=== PATIENT | female | born 1980 | race Caucasian/White ===

== ENCOUNTER 2021-06-02 10:57 | Inpatient (IN) ==
[2021-06-02] MEDS ORDERED: ALBUTEROL SULFATE 200 PUFF INHALER INH PRN ×2 (12:36→17:12)
--- NOTE | 2021-06-02 12:54 | XRay Report ---
HISTORY: Covid symptoms with hypoxia FINDINGS: Severe diffuse groundglass alveolar infiltrates are present throughout both lungs. There is greater involvement in the left side than right. Lung volumes are normal. No pneumothorax or pleural effusion are present. The heart size is within upper limits of normal. No prior study is available for comparison. IMPRESSION: Severe bilateral pneumonia Interpreted and Authenticated by: Omer Al 06/02/21
--- NOTE | 2021-06-02 12:56 | Emergency Department Note ---
HPI General Chief complaint: Shortness of Breath/Dyspnea Stated complaint: SOB Time Seen by Provider: 06/02/21 12:06 Source: patient Limitations: no limitations History of Present Illness HPI Narrative: Bernadette is a 41-year-old female who comes to the emergency department today with worsening shortness of breath. She was seen by Dr. Bertrand odom 4 days ago and was placed on prednisone, clopidogrel, and Nasacort due to a presumed diagnosis of COVID-19 as her was recently diagnosed with this illness and she began to have symptoms shortly after he recovered. Her did require oxygen at home but did not face any other complications. When Bernadette noticed that her oxygen saturations and and was able to maintain into the high 90s at 2 L but over the past 3 days has had to crank this up to 5 L. She complains of a persistent dry cough as well as generalized weakness and myalgia. No reports of any nausea or vomiting. No reports of any urinary or bowel issues. Bernadette does not have any history of asthma, COPD, cigarette use. She is not a diabetic. She is morbidly obese. She has no history of PE, ACS, or aortic injury. She is quite anxious today as she has never experienced symptoms of COVID-19 before. She is unvaccinated. She has no other complaints today in the ER. No other modifying factors. Related Data Home Medications Medication Instructions Recorded Confirmed lorazepam 1 mg tablet 1 mg PO QDAY PRN 03/12/21 03/12/21 Previous Rx's Medication Instructions Recorded lidocaine 5 % topical patch 1 patch TOPICAL QDAY #15 ea 03/12/21 fluoxetine 10 mg tablet 10 mg PO QDAY #30 tab 05/09/21 lorazepam 1 mg tablet 1 mg PO BID PRN #60 tab 05/09/21 phentermine 37.5 mg tablet 18.75 mg PO BID #30 tab 05/09/21 Allergies Allergy/AdvReac Type Severity Reaction Status Date / Time ketamine AdvReac Intermediate Agitated Unverified 06/02/21 11:12 [From MKO (Hxfptdatb-Lhkphvqf-Jkcxj)] midazolam AdvReac Intermediate Agitated Unverified 06/02/21 11:12 [From MKO (Eqlvfrste-Hrqjhiic-Ulvde)] ondansetron AdvReac Intermediate Agitated Unverified 06/02/21 11:12 [From MKO (Oqbcliebo-Trsybzwq-Ylokr)] Review of Systems ROS ROS Narrative: Narrative: All systems ED: reviewed and negative except as stated. [facility] Narrative Patient History Narrative: Narrative: Medical/Surgical/Family History All Active Problems (Updated 06/02/21 @ 14:23 by Misael Delong PA-C) COVID-19 (Acute) Anxiety (Acute) Morbid obesity with BMI of 45.0-49.9, adult (Acute) Hyperlipidemia (Acute) Prediabetes (Acute) Insomnia (Acute) Abscess of groin, right (Acute) Medical History (Updated 06/02/21 @ 14:23 by Misael Delong PA-C) Anxiety Bulimia History of PCOS Was on Metformin Hyperlipidemia Insomnia Morbid obesity with BMI of 45.0-49.9, adult Prediabetes Surgical History (Updated 06/02/21 @ 11:12 by Brent Feldman) History of endometrial biopsy (~08/22/19) PORTIONS OF ENDOMETRIAL POLYP WITH FOCAL BENIGN (SIMPLE) HYPERPLASIA. = Dr Fuentes History of tonsillectomy Hx of laparoscopic gastric banding Previous section (~02/10/04) Family History (System 06/02/21 @ 11:12 by Brent Feldman) Grandmother Diabetes Hypertension Mother No problems noted. Father No problems noted. Other No pertinent family history Social History Smoking Status: Former smoker Alcohol Intake Frequency: holiday/special occasion only Substance Use: does not use Exam Narrative Narrative: Narrative: General Limitations: no limitations Head Head: Present atraumatic, normocephalic and normal inspection Eye Eye: Present normal appearance, PERRL and EOMI ENT ENT: Present normal exam, normal oropharynx and mucous membranes moist Neck Neck: Present normal inspection, full ROM and trachea midline Chest Chest: Present normal inspection and symmetric chest wall rise Respiratory Respiratory: Present decreased breath sounds Cardiovascular Cardiovascular: Present regular rate and normal rhythm Adbominal Abdominal: Present soft Extremities Extremities: Present normal inspection, full ROM and normal capillary refill Back Back: Present normal inspection and full ROM Neurological Neurological: Present alert and oriented X3 Psychiatric Psychiatric: Present normal affect and normal mood Skin Skin: Present warm (WNL), dry and normal color Course Course Course Narrative: 1258: Patient is not tachycardic and does not have any history of PE. EKG on my read shows sinus rhythm with a rate of no ST changes, no hyperacute T waves. No evidence of any S wave or Q waves. At this point time patient does have some risk of pulmonary embolism based on age and complaint of shortness of breath because she is not tachycardic or reporting hemoptysis and had recent exposure to her who was diagnosed with COVID-19 this certainly makes sense for a clinical diagnosis of COVID-19 despite her rapid test being negative. Chest x-ray has been ordered for further evaluation of possible pneumonia. Patient continues to saturate well in the 90s but is at 5 L by nonrebreather mask. If the patient cannot maintain high oxygen saturation on the then we should consider hospitalization due to Covid 19 with hypoxia. Patient to get a metered dose inhaler of albuterol every 4 hours in the ER. Labs and chest x-ray have been ordered for further evaluation. 1415: X-ray confirms diagnosis of COVID-19 based on evidence of bilateral groundglass infiltrates. Patient continues to require 5 L by oxygen mask to stay above 90% oxygen saturation. I did speak with the hospitalist regarding inpatient stay and he has accepted the patient to PCU. Patient will have an ABG drawn as well as a Cepheid PCR test. IV dose of dexamethasone was given for inflammation. Vital Signs Vital signs: Vital Signs Temperature 97.5 F 06/02/21 10:58 Pulse Rate 65 06/02/21 10:58 Respiratory Rate 22 06/02/21 10:58 Blood Pressure 131/62 06/02/21 10:58 Pulse Oximetry (%) 92 06/02/21 10:58 Temperature 97.5 F 06/02/21 10:58 Pulse Rate 72 06/02/21 14:17 Respiratory Rate 22 06/02/21 14:17 Blood Pressure 122/55 06/02/21 14:17 Pulse Oximetry (%) 97 06/02/21 14:17 [facility] MDM Narrative Medical decision making narrative: 41 year old female with history of COVID exposure and symptoms of COVID 19 presents to the ER today with worsening shortness of breath and hypoxia. Patient struggles to maintain O2 stats over 90 without 5L by oxy-mask. She was using at home O2 and reports a requirement of 2 to 5 L to breath comfortably. Patients x-ray shows evidence of worsening pneumonia and based on her hypoxia will be admitted to the hospital for care. Patient discussed with Dr. Miguel prior to admission. She was given a metered dose inhaler for shortness of breath and dexamethasone for inflammation. Assessment: COVID Pneumonia. Treatment: Hospital admission. Dexamethasone for inflammation. Albuterol for shortness of breath. Lab Data Result diagrams: 06/02/21 12:55 06/02/21 12:55 Labs: Lab Results 06/02/21 06/02/21 Range/Units 12:55 12:55 WBC 7.4 (4.5-11.0) K/mcL RBC 4.85 (3.59-5.38) M/mcL Hgb 13.0 (11.2-15.7) g/dL Hct 39.9 (34.1-44.9) % MCV 82.3 (80.0-100.0) fL MCH 26.8 (26.0-34.0) pg MCHC 32.6 (31.0-36.0) g/dL RDW 15.1 H (11.5-14.5) % Plt Count 296 (140-440) K/mcL MPV 9.9 (7.4-10.4) fL Neut % (Auto) 82.3 H (38.0-78.0) % Lymph % (Auto) 11.9 L (15.5-49.0) % Mcculloch % (Auto) 5.4 (1.0-12.0) % Eos % (Auto) 0.1 (0.0-7.0) % Baso % (Auto) 0.3 (0.0-2.0) % Lymph # (Auto) 0.88 L (1.50-4.80) K/mcL M[place]ulloch # (Auto) 0.40 (0.10-0.90) K/mcL Eos # (Auto) 0.01 (0.00-0.70) K/mcL Baso # (Auto) 0.02 (0.00-0.30) K/mcL Absolute Neutrophils 6.08 (1.80-8.00) K/mcL Sodium 138 (133-145) mmol/L Potassium 3.5 (3.3-5.1) mmol/L Chloride 98 (96-108) mmol/L Carbon Dioxide 24 (22-30) mmol/L Anion Gap 16.0 (8.0-16.0) BUN 14 (6-20) mg/dL Creatinine 0.7 (0.6-1.1) mg/dL GFR Calculation 108 Glucose 118 H (70-105) mg/dL Calcium 8.8 (8.6-10.4) mg/dL Total Bilirubin 0.4 (0.1-1.0) mg/dL AST 33 H (<32) U/L ALT 24 (<40) U/L Alkaline Phosphatase 101 (39-117) U/L Total Protein 6.9 (5.9-8.4) gm/dL Albumin 3.4 (3.2-5.2) gm/dL Globulin 3.5 (2.2-3.7) gm/dL Albumin/Globulin Ratio 1.0 (1.0-2.3) ED POC Tests ED POC Tests: JOSE JUAN - SARS Antigen Negative Discharge Plan Patient/Caregiver Discharge Instructions Pt seen by EMPLOYMENT LAW SPECIALIST/PA only: Yes Clinical Impression: COVID-19 Instructions: COVID-19 Patient Disposition: Xfer As Inpt ([facility]) Condition: Fair Follow up with: Delia Salcedo ARNP [Primary Care Provider] - Prescriptions: No Action fluoxetine 10 mg tablet 10 mg PO QDAY Qty: 30 RF: 12 lorazepam 1 mg tablet 1 mg PO BID PRN (Reason: anxiety) Qty: 60 RF: 0 phentermine 37.5 mg tablet 18.75 mg PO BID Qty: 30 RF: 3 lorazepam 1 mg tablet 1 mg PO QDAY PRNRF: 0 lidocaine [Lidoderm] 5 % adhesive patch,medicated 1 patch topical QDAY Qty: 15 RF: 0
[2021-06-02] MEDS ORDERED: DEXAMETHASONE 10 MG/ML VIAL IV ONE (13:12)
[2021-06-02 13:40] LABS: Basophils # (Auto) 0.02 K/mcL (0.00-0.30); Basophils % (Auto) 0.3 % (0.0-2.0); Eosinophils # (Auto) 0.01 K/mcL (0.00-0.70); Eosinophils % (Auto) 0.1 % (0.0-7.0); Hematocrit 39.9 % (34.1-44.9); Lymphocytes # (Auto) 0.88 K/mcL (1.50-4.80); Lymphocytes % (Auto) 11.9 % (15.5-49.0); Mean Cell Volume 82.3 fL (80.0-100.0); Mean Corpuscular HGB Conc 32.6 g/dL (31.0-36.0); Mean Platelet Volume 9.9 fL (7.4-10.4); Monocytes % (Auto) 5.4 % (1.0-12.0); Neutrophils % (Auto) 82.3 % (38.0-78.0); Platelet Count 296 K/mcL (140-440); RBC 4.85 M/mcL (3.59-5.38); Red Cell Distribution Width 15.1 % (11.5-14.5); WBC 7.4 K/mcL (4.5-11.0)
[2021-06-02 13:47] LABS: ALT/SGPT 24 U/L (<40); AST/SGOT 33 U/L (<32); Albumin 3.4 gm/dL (3.2-5.2); Alkaline Phosphatase 101 U/L (39-117); Bilirubin,Total 0.4 mg/dL (0.1-1.0); Blood Urea Nitrogen 14 mg/dL (6-20); Calcium 8.8 mg/dL (8.6-10.4); Carbon Dioxide 24 mmol/L (22-30); Chloride 98 mmol/L (96-108); Globulin 3.5 gm/dL (2.2-3.7); Glomerular Filtration Rate 108; Glucose 118 mg/dL (70-105)
--- NOTE | 2021-06-02 16:44 | Internal Med History&Physical ---
HPI History of Present Illness Patient information: Note initiated : 06/02/21 at 4:31 pm Service Date, if different from initiated Date: [] Patient: Bernadette Brooks 41 y/o F admitted on for Shortness of breath. Chief Complaint: [] History of present illness: Ms. Jassi Resendez is a 41 year old female with a history of anxiety, prediabetes, obesity-BMI 42 who presented to the [facility] for hypoxia that began about three days ago. Her was diagnosed with COVID-19 and was is recovering at home however apparently required oxygen during part of his recovery. The patient says that she began to feel ill about 10 days ago and began to use her husbands oxygen 3 days ago when she saw she was hypoxic on a home pulse oximeter. The patient was started on Prednisone 60 mg daily by her primary care provider but continued to get more short of breath. She also has a nonproductive cough and pleuritic chest pain. In the ED the patient required nasal canula oxygen 5 L/min, her respiratory rate 20-30. CBC was fairly unremarkable, mildly increased neutrophils and lymphopenia but WBC count was normal. Chemistry panel only showed mild hyperglycemia and mildly elevated AST. Chest xray showed severe diffuse ground glass alveolar infiltrates bilaterally, left>right. CEPHEID PCR was positive for SARS-CoV-2. Hospital medicine was consulted for admission. Review of systems Constitutional: positive for fatigue Eyes: no vision changes or pain Cardiovascular: positive for pleuritic chest pain Respiratory: positive for cough and dyspnea Gastrointestinal: no abdominal pain, no nausea, vomiting, or diarrhea Genitourinary: no dysuria or difficulty voiding Musculoskeletal: positive for myalgia Integumentary: no skin lesion or wound Neurological: no focal weakness or numbness Psychiatric: no anxiety or depression Physical exam Head: Atraumatic, normal inspection. Eyes: normal appearance, no scleral icterus. Neck: full ROM Respiratory: nasal canula oxygen, tachypnea, accessory muscle use but able to speak in full sentences Cardiovascular: normal rate and rhythm, S1, S2. GI/Abdominal: soft, nontender, no guarding. Extremities: full range of motion, nontender. Neurological: CN II-XII intact, intact motor, intact sensation. Psychiatric: normal mood. Skin: warm, normal color PFSH PFSH All Active Problems (Updated 06/02/21 @ 14:23 by Misael Delong PA-C) COVID-19 (Acute) Anxiety (Acute) Morbid obesity with BMI of 45.0-49.9, adult (Acute) Hyperlipidemia (Acute) Prediabetes (Acute) Insomnia (Acute) Abscess of groin, right (Acute) Medical History (Updated 06/02/21 @ 14:23 by Misael Delong PA-C) Anxiety Bulimia History of PCOS Was on Metformin Hyperlipidemia Insomnia Morbid obesity with BMI of 45.0-49.9, adult Prediabetes Surgical History (Updated 06/02/21 @ 11:12 by Brent Feldman) History of endometrial biopsy (~08/22/19) PORTIONS OF ENDOMETRIAL POLYP WITH FOCAL BENIGN (SIMPLE) HYPERPLASIA. = Dr Fuentes History of tonsillectomy Hx of laparoscopic gastric banding Previous section (~02/10/04) Family History (System 06/02/21 @ 11:12 by Brent Feldman) Grandmother Diabetes Hypertension Mother No problems noted. Father No problems noted. Other No pertinent family history Social History (System 06/02/21 @ 11:12 by Brent Feldman) household members: spouse housing: house marital status: occupational status: employed occupation: [employer] well-balanced diet: other details: Keto, no sugar during the past year weight has: increased > 10 lbs alcohol intake frequency: holiday/special occasion only substance use type: does not use carson/rastafari: [employer]/ALLERGIES Home Medications and Allergies Home Medications Medication Instructions Recorded Confirmed Type lorazepam 1 mg tablet 1 mg PO BID PRN #60 tab 05/09/21 06/02/21 Rx clopidogrel 75 mg PO DAILY 06/02/21 06/02/21 History famotidine 20 mg PO DAILY 06/02/21 06/02/21 History fluticasone propionate 2 spray INTRANASAL DAILY 06/02/21 06/02/21 History prednisone 40 mg PO DAILY 06/02/21 06/02/21 History Allergies Allergy/AdvReac Type Severity Reaction Status Date / Time ketamine AdvReac Intermediate Agitated Verified 06/02/21 17:24 [From MKO (Jjezuagdc-Savbygpu-Icakc)] midazolam AdvReac Intermediate Agitated Verified 06/02/21 17:24 [From MKO (Bcigsonde-Ndicbvzs-Tyznf)] ondansetron AdvReac Intermediate Agitated Verified 06/02/21 17:24 [From MKO (Ehuptylpz-Xtzfolmu-Xgggf)] EXAM Constitutional Vitals: Temp Pulse Resp BP Pulse Ox 97.5 F 63 26 H 124/62 91 06/02/21 10:58 06/02/21 16:02 06/02/21 16:02 06/02/21 16:02 06/02/21 16:02 DATA Data Completed and Pending Labs: Labs from last 24 hours 06/02/21 06/02/21 12:55 12:55 WBC 7.4 RBC 4.85 Hgb 13.0 Hct 39.9 MCV 82.3 MCH 26.8 MCHC 32.6 RDW 15.1 H Plt Count 296 MPV 9.9 Neut % (Auto) 82.3 H Lymph % (Auto) 11.9 L Montgomery % (Auto) 5.4 Eos % (Auto) 0.1 Baso % (Auto) 0.3 Lymph # (Auto) 0.88 L Montgomery # (Auto) 0.40 Eos # (Auto) 0.01 Baso # (Auto) 0.02 Absolute Neutrophils 6.08 Sodium 138 Potassium 3.5 Chloride 98 Carbon Dioxide 24 Anion Gap 16.0 BUN 14 Creatinine 0.7 GFR Calculation 108 Glucose 118 H Calcium 8.8 Total Bilirubin 0.4 AST 33 H ALT 24 Alkaline Phosphatase 101 Total Protein 6.9 Albumin 3.4 Globulin 3.5 Albumin/Globulin Ratio 1.0 A/P Narrative A/P Narrative: Assessment: 41 year old female with anxiety, prediabetes, obesity admitted for acute hypoxic respiratory failure secondary to severe COVID-19 pneumonia. #Acute hypoxic respiratory failure #Severe COVID-19 pneumonia #Anxiety #BMI 42 Plan -Dexamethasone IV and Remdesivir IV for severe COVID-19 pneumonia. -Oxygen supplementation as needed. -Albuterol inhaler prn. -Ativan IV prn. -Check CRP and follow. -Daily labs while in PCU. -Consider Tocilizumab if treatment available. -Encourage self proning. -Regular diet. -DVT ppx: Lovenox SQ -Code status: Wheel Tuner Spent With Patient Time: Total time spent is greater than 50% in coordination of care (as documented) at patient's floor/unit and/or counseling patient:
[2021-06-02] MEDS ORDERED: ACETAMINOPHEN 325 MG TABLET PO PRN (17:12)
[2021-06-02] MEDS ORDERED: ONDANSETRON 4 MG/2 ML VIAL IV PRN (17:12)
[2021-06-02] MEDS ORDERED: oxyCODONE/APAP 5/325MG TABLET PO PRN (17:12)
[2021-06-02] MEDS ORDERED: KETOROLAC 30 MG/ML VIAL IV PRN (17:12)
[2021-06-02] MEDS ORDERED: LORazepam 1 MG TABLET PO PRN (17:20)
[2021-06-02] MEDS ORDERED: REMDESIVIR 200 MG in 0.9 % SODIUM CHLORIDE 250 ML IV ONE (18:00)
[2021-06-02 18:05] LABS: ALT/SGPT 24 U/L (<40); AST/SGOT 34 U/L (<32); Albumin 3.5 gm/dL (3.2-5.2); Alkaline Phosphatase 100 U/L (39-117); Bilirubin,Direct < 0.2 mg/dL (0-0.3); Bilirubin,Total 0.4 mg/dL (0.1-1.0); Blood Urea Nitrogen 14 mg/dL (6-20); Calcium 8.9 mg/dL (8.6-10.4); Carbon Dioxide 24 mmol/L (22-30); Chloride 98 mmol/L (96-108); Globulin 3.6 gm/dL (2.2-3.7); Glomerular Filtration Rate 108; Glucose 116 mg/dL (70-105); Lactate Dehydrogenase 413 U/L (135-225); Phosphorous 2.7 mg/dL (2.5-4.5); Triglycerides 185 mg/dL (<150); Uric Acid 6.3 mg/dL (2.5-8.0)
[2021-06-02] MEDS: LORazepam 2 MG/ML VIAL IV PRN (19:00)
--- NOTE | 2021-06-02 20:50 | EKG ---
[facility] Test Date: 2021-06-02 Pat Name: Bernadette ResendezDepartment: ED Room: Gender: Female Soil Fertility Specialist: NGHIA : 1980 Requested By: Anibal Rivera Order Number: [id number] Reading MD: Brendan Kohli M.D. Measurements Intervals [place] Rate: 66 P: 2 ME: 172 QRS: 4 QRSD: 82 T: 46 QT: 420 QTc: 441 Interpretive Statements AGE IS NOT ENTERED, ASSUMED TO BE 51 YEARS OLD FOR PURPOSE OF ECG INTERPRETATION SINUS RHYTHM NO TRACING FOUND IN [employer] NORMAL TRACING Electronically Signed On 06-02-2021 20:49:57 PDT by Brendan Kohli M.D. /store/E2/[email or web address]/ecg/[id number].pdf
[2021-06-02] MEDS: SENNOSIDES 1 TABLET PO SCH (22:04)
[2021-06-02] MEDS: 0.9 % SODIUM CHLORIDE 10 ML SYRINGE IV SCH (22:04)
[2021-06-02] MEDS ORDERED: guaiFENesin/DEXTROMETHORPHAN ORAL SOL ONE (23:14)
[2021-06-03] MEDS: LORazepam 2 MG/ML VIAL IV PRN ×2 (03:28→09:35)
[2021-06-03] MEDS: 0.9 % SODIUM CHLORIDE 10 ML SYRINGE IV SCH ×3 (06:29→21:30)
[2021-06-03 07:19] LABS: Basophils # (Auto) 0.02 K/mcL (0.00-0.30); Basophils % (Auto) 0.4 % (0.0-2.0); Eosinophils # (Auto) 0 K/mcL (0.00-0.70); Eosinophils % (Auto) 0 % (0.0-7.0); Hematocrit 37.1 % (34.1-44.9); Hemoglobin 12.2 g/dL (11.2-15.7); Lymphocytes # (Auto) 0.84 K/mcL (1.50-4.80); Mean Cell Volume 83.2 fL (80.0-100.0); Mean Corpuscular HGB Conc 32.9 g/dL (31.0-36.0); Mean Platelet Volume 9.7 fL (7.4-10.4); Monocytes # (Auto) 0.42 K/mcL (0.10-0.90); Monocytes % (Auto) 8.8 % (1.0-12.0); Neutrophils % (Auto) 73.2 % (38.0-78.0); Platelet Count 287 K/mcL (140-440); RBC 4.46 M/mcL (3.59-5.38); Red Cell Distribution Width 15.1 % (11.5-14.5); WBC 4.8 K/mcL (4.5-11.0)
[2021-06-03 07:22] LABS: ALT/SGPT 23 U/L (<40); AST/SGOT 28 U/L (<32); Albumin 3.4 gm/dL (3.2-5.2); Albumin/Globulin Ratio 1.1 (1.0-2.3); Alkaline Phosphatase 97 U/L (39-117); Bilirubin,Direct < 0.2 mg/dL (0-0.3); Bilirubin,Total 0.5 mg/dL (0.1-1.0); Blood Urea Nitrogen 13 mg/dL (6-20); Calcium 8.8 mg/dL (8.6-10.4); Carbon Dioxide 22 mmol/L (22-30); Chloride 102 mmol/L (96-108); Globulin 3.2 gm/dL (2.2-3.7); Glomerular Filtration Rate 114; Glucose 112 mg/dL (70-105); Lactate Dehydrogenase 380 U/L (135-225); Triglycerides 126 mg/dL (<150); Uric Acid 6.2 mg/dL (2.5-8.0)
[2021-06-03] MEDS: DEXAMETHASONE 10 MG/ML VIAL IV SCH (08:25)
[2021-06-03] MEDS: ENOXAPARIN 40 MG/0.4 ML SYRINGE SQ SCH ×2 (08:25→21:30)
--- NOTE | 2021-06-03 08:50 | XRay Report ---
HISTORY: Follow-up COVID pneumonia FINDINGS: Severe alveolar infiltrates are present throughout both lungs. There has been mild improvement in the left lower lobe but increased opacification centrally in the right upper lobe. Lung volumes remain normal. There is no pneumothorax or pleural effusion. The heart size is normal. IMPRESSION: persistent severe pneumonia with a shifting pattern of consolidation Interpreted and Authenticated by: Omer Al 06/03/21
[2021-06-03 08:52] LABS: Lymphocytes % (Auto) 17.6 % (15.5-49.0)
[2021-06-03] MEDS ORDERED: DEXAMETHASONE 10 MG/ML VIAL IV SCH (09:00)
[2021-06-03] MEDS ORDERED: ENOXAPARIN 40 MG/0.4 ML SYRINGE SQ SCH (09:00)
[2021-06-03] MEDS: REMDESIVIR 100 MG in 0.9 % SODIUM CHLORIDE 250 ML IV SCH (13:48)
[2021-06-03] MEDS ORDERED: ALBUTEROL SULFATE 200 PUFF INHALER INH PRN (14:07)
--- NOTE | 2021-06-03 17:44 | Internal Med Progress Note ---
SUBJECTIVE Subjective Patient information: Note initiated : 06/03/21 at 5:40 pm Service Date, if different from initiated Date: [] Patient: Bernadette Brooks 41 y/o F admitted on 06/02/21 for Shortness of breath. Chief Complaint: [] Interval history: Ms. Jassi Resendez is a 41 year old female with a history of anxiety, prediabetes, obesity-BMI 42 who presented to the [facility] for hypoxia that began about three days ago. Her was diagnosed with COVID-19 and was is recovering at home however apparently required oxygen during part of his recovery. The patient says that she began to feel ill about 10 days ago and began to use her husbands oxygen 3 days ago when she saw she was hypoxic on a home pulse oximeter. The patient was started on Prednisone 60 mg daily by her primary care provider but continued to get more short of breath. She also has a nonproductive cough and pleuritic chest pain. In the ED the patient required nasal canula oxygen 5 L/min, her respiratory rate 20-30. CBC was fairly unremarkable, mildly increased neutrophils and lymphopenia but WBC count was normal. Chemistry panel only showed mild hyperglycemia and mildly elevated AST. Chest xray showed severe diffuse ground glass alveolar infiltrates bilaterally, left>right. CEPHEID PCR was positive for SARS-CoV-2. Hospital medicine was consulted for admission. 06/03: On HHFNC w/ FiO2 of 75, does not appear to be in respiratory distress, respiratory rate mid to low 20s, CRP increased 5.2 to 7.8, LDH trended down. Continue monitoring in the ICU. Review of systems positive for cough and dyspnea Physical exam Head: Atraumatic, normal inspection. Eyes: normal appearance, no scleral icterus. Neck: full ROM Respiratory: nasal canula oxygen, tachypnea, accessory muscle use but able to speak in full sentences Cardiovascular: normal rate and rhythm, S1, S2. GI/Abdominal: soft, nontender, no guarding. Extremities: full range of motion, nontender. Neurological: CN II-XII intact, intact motor, intact sensation. Psychiatric: normal mood. Skin: warm, normal color Constitutional Vitals: Vital Signs Temp Pulse Resp BP Pulse Ox 97.7 F 75 23 H 104/55 96 06/03/21 04:01 06/03/21 16:46 06/03/21 16:46 06/03/21 16:01 06/03/21 16:46 Period Temp Pulse Resp BP Sys/Clemons Pulse Ox Last 24 Hr 97.7 F-98.1 F 41-75 13-27 104-156/55-81 90-99 Intake and Output 06/03/21 06/03/21 06/03/21 05:59 13:59 21:59 Intake Total 540 250 Output Total 550 925 400 Balance -550 -385 -150 Weight 125.191 kg Patient Weight 06/04/21 05:59 Weight 125.191 kg Intake & Output: Intake & Output 06/03/21 06/03/21 06/03/21 05:59 13:59 21:59 Intake Total 540 250 Output Total 550 925 400 Balance -550 -385 -150 Weight 125.191 kg Intake: IV 250 Veklury 100 mg In Sodium 250 Chloride 0.9% 250 ml @ 500 mls/ hr IV Q24H [facility] Rx#:[id number] Oral 540 Output: Void Amount 550 925 400 Other: Meal Lunch Percent of Meal Consumed 50% Urine Appearance Clear Urine Color Light Katherine OBJ DATA Labs CBC & Chem 7: 06/03/21 05:19 06/03/21 05:19 Labs: Abnormal Lab Results 06/03/21 06/03/21 06/03/21 05:19 05:19 05:19 RDW 15.1 H Neut % (Auto) Lymph % (Auto) Lymph # (Auto) 0.84 L Anion Gap 18.0 H Glucose 112 H Magnesium 2.6 H GGT 40 H AST Lactate Dehydrogenase 380 H C-Reactive Protein 7.80 H Triglycerides 06/02/21 06/02/21 06/02/21 17:12 12:55 12:55 RDW 15.1 H Neut % (Auto) 82.3 H Lymph % (Auto) 11.9 L Lymph # (Auto) 0.88 L Anion Gap Glucose 116 H Magnesium GGT 43 H AST 34 H Lactate Dehydrogenase 413 H C-Reactive Protein 5.20 H Triglycerides 185 H 06/02/21 12:55 RDW Neut % (Auto) Lymph % (Auto) Lymph # (Auto) Anion Gap Glucose 118 H Magnesium GGT AST 33 H Lactate Dehydrogenase C-Reactive Protein Triglycerides Meds: Medications Acetaminophen (Acetaminophen 325 Mg Tablet) 650 mg PO Q6HP PRN; Protocol PRN Reason: Per Pain Protocol/Fever > 101 Albuterol Sulfate (Albuterol Sulfate 200 Puff Inhaler) 2 puff INH Q2HP PRN PRN Reason: Shortness Of Breath Dexamethasone (Dexamethasone 10 Mg/Ml Vial) 6 mg IV DAILY [facility] Stop: 06/12/21 08:59 Last Admin: 06/03/21 08:25 Dose: 6 mg Documented by: Diazepam (Diazepam 2 Mg Tablet) 2 mg PO TID PRN PRN Reason: Anxiety Enoxaparin Sodium (Enoxaparin 40 Mg/0.4 Ml Syringe) 40 mg SQ BID [facility] Last Admin: 06/03/21 08:25 Dose: 40 mg Documented by: Guaifenesin (Guaifenesin 100 Mg/5 Ml Oral Olivia) 200 mg PO Q4HP PRN PRN Reason: Congestion Last Admin: 06/03/21 17:14 Dose: 200 mg Documented by: REMDESIVIR 100 mg/ Sodium (Chloride) 250 mls @ 500 mls/hr IV Q24H [facility] Stop: 06/06/21 14:29 Last Infusion: 06/03/21 15:10 Dose: Infused Documented by: Ondansetron HCl (Ondansetron 4 Mg/2 Ml Vial) 4 mg IV Q6HP PRN PRN Reason: Nausea And Vomiting Last Admin: 06/03/21 03:28 Dose: 4 mg Documented by: Oxycodone/Acetaminophen (Oxycodone/Apap 5/325mg Tablet) 1 tab PO Q4HP PRN; Protocol PRN Reason: Per Pain Protocol Senna (Sennosides 1 Tablet) 2 tab PO HS [facility] Last Admin: 06/02/21 22:04 Dose: Not Given Documented by: Sodium Chloride (0.9 % Sodium Chloride 10 Ml Syringe) 10 ml IV Q8 [facility] Last Admin: 06/03/21 13:49 Dose: 10 ml Documented by: A/P Narrative A/P Narrative: Assessment: 41 year old female with anxiety, prediabetes, obesity admitted for acute hypoxic respiratory failure secondary to severe COVID-19 pneumonia. #Acute hypoxic respiratory failure #Severe COVID-19 pneumonia #Anxiety #BMI 42 Plan -Dexamethasone IV and Remdesivir IV for severe COVID-19 pneumonia. -Oxygen supplementation as needed. -Albuterol inhaler prn. -Valium prn for axiety -Follow CRP and procalcitonin. -Daily labs while in ICU. -Daily chest xray until more stable. -Consider Tocilizumab if it becomes available-discussed with pharmacy. -Encourage self proning. -Regular diet. -secretarial teacher. -DVT ppx: Lovenox SQ BID -Code status: Engineer Specialist Spent With Patient Time: Total time spent is greater than 50% in coordination of care (as documented) at patient's floor/unit and/or counseling patient: QUALITY VTE Deep Vein Thrombosis/Pulmonary Embolism Present on Admission: No
[2021-06-03] MEDS: SENNOSIDES 1 TABLET PO SCH (21:30)
[2021-06-03] MEDS: DIAZEPAM 2 MG TABLET PO PRN (21:58)
[2021-06-04] MEDS: 0.9 % SODIUM CHLORIDE 10 ML SYRINGE IV SCH ×3 (06:29→20:56)
[2021-06-04 07:41] LABS: Basophils # (Auto) 0.02 K/mcL (0.00-0.30); Basophils % (Auto) 0.3 % (0.0-2.0); Eosinophils # (Auto) 0.03 K/mcL (0.00-0.70); Eosinophils % (Auto) 0.5 % (0.0-7.0); Hematocrit 38.3 % (34.1-44.9); Hemoglobin 12.1 g/dL (11.2-15.7); Lymphocytes % (Auto) 16.7 % (15.5-49.0); Mean Corpuscular HGB Conc 31.6 g/dL (31.0-36.0); Mean Platelet Volume 9.8 fL (7.4-10.4); Monocytes # (Auto) 0.43 K/mcL (0.10-0.90); Monocytes % (Auto) 7.2 % (1.0-12.0); Neutrophils % (Auto) 75.3 % (38.0-78.0); Platelet Count 319 K/mcL (140-440); RBC 4.56 M/mcL (3.59-5.38); Red Cell Distribution Width 15.1 % (11.5-14.5)
[2021-06-04] MEDS: ENOXAPARIN 40 MG/0.4 ML SYRINGE SQ SCH ×2 (08:12→20:56)
[2021-06-04] MEDS: DEXAMETHASONE 10 MG/ML VIAL IV SCH (08:13)
[2021-06-04 08:16] LABS: ALT/SGPT 23 U/L (<40); AST/SGOT 20 U/L (<32); Albumin 3.2 gm/dL (3.2-5.2); Alkaline Phosphatase 83 U/L (39-117); Bilirubin,Direct < 0.2 mg/dL (0-0.3); Bilirubin,Total 0.3 mg/dL (0.1-1.0); Blood Urea Nitrogen 14 mg/dL (6-20); Calcium 9.1 mg/dL (8.6-10.4); Carbon Dioxide 23 mmol/L (22-30); Chloride 100 mmol/L (96-108); Globulin 3.3 gm/dL (2.2-3.7); Glomerular Filtration Rate 114; Glucose 128 mg/dL (70-105); Lactate Dehydrogenase 321 U/L (135-225); Phosphorous 4.2 mg/dL (2.5-4.5); Triglycerides 93 mg/dL (<150); Uric Acid 5.9 mg/dL (2.5-8.0)
[2021-06-04] MEDS: DIAZEPAM 2 MG TABLET PO PRN ×3 (08:39→20:56)
--- NOTE | 2021-06-04 11:06 | XRay Report ---
HISTORY: Follow-up COVID pneumonia FINDINGS: There are severe alveolar infiltrates scattered throughout both lungs. This is a random distribution. They have become worse since 06/02/2021 and 06/03/2021. There is no pneumothorax or pleural effusion. The heart is enlarged and has increased in size. Pulmonary vessels cannot be evaluated. IMPRESSION: Worsening bilateral pneumonia with new onset cardiomegaly Interpreted and Authenticated by: Omer Al 06/04/21
[2021-06-04] MEDS: REMDESIVIR 100 MG in 0.9 % SODIUM CHLORIDE 250 ML IV SCH (14:06)
[2021-06-04 15:37] LABS: proBNP 124.2 pg/mL (<125.0)
--- NOTE | 2021-06-04 15:43 | Internal Med Progress Note ---
SUBJECTIVE Subjective Patient information: Note initiated : 06/04/21 at 3:38 pm Service Date, if different from initiated Date: [] Patient: Bernadette Brooks 41 y/o F admitted on 06/02/21 for Shortness of breath. Chief Complaint: [] Interval history: Ms. Jassi Resendez is a 41 year old female with a history of anxiety, prediabetes, obesity-BMI 42 who presented to the [facility] for hypoxia that began about three days ago. Her was diagnosed with COVID-19 and was is recovering at home however apparently required oxygen during part of his recovery. The patient says that she began to feel ill about 10 days ago and began to use her husbands oxygen 3 days ago when she saw she was hypoxic on a home pulse oximeter. The patient was started on Prednisone 60 mg daily by her primary care provider but continued to get more short of breath. She also has a nonproductive cough and pleuritic chest pain. In the ED the patient required nasal canula oxygen 5 L/min, her respiratory rate 20-30. CBC was fairly unremarkable, mildly increased neutrophils and lymphopenia but WBC count was normal. Chemistry panel only showed mild hyperglycemia and mildly elevated AST. Chest xray showed severe diffuse ground glass alveolar infiltrates bilaterally, left>right. CEPHEID PCR was positive for SARS-CoV-2. Hospital medicine was consulted for admission. 06/03: On HHFNC w/ FiO2 of 75, does not appear to be in respiratory distress, respiratory rate mid to low 20s, CRP increased 5.2 to 7.8, LDH trended down. Continue monitoring in the ICU. 06/04: Modestly improved oxygen requirement today, continues on HHFNC. CRP decreased 7.8 to 3.9 and LDH also trending down. The patient says she feels better. Chest xray looks worse but the patient seems to be doing better today overall. Procalcitonin was .05. Review of systems positive for cough and dyspnea Physical exam Head: Atraumatic, normal inspection. Eyes: normal appearance, no scleral icterus. Neck: full ROM Respiratory: nasal canula oxygen, tachypnea, accessory muscle use but able to speak in full sentences Cardiovascular: normal rate and rhythm, S1, S2. GI/Abdominal: soft, nontender, no guarding. Extremities: full range of motion, nontender. Neurological: CN II-XII intact, intact motor, intact sensation. Psychiatric: normal mood. Skin: warm, normal color Constitutional Vitals: Vital Signs Temp Pulse Resp BP Pulse Ox 97.1 F 54 L 16 123/66 100 06/04/21 12:18 06/04/21 12:18 06/04/21 12:18 06/04/21 12:18 06/04/21 12:18 Period Temp Pulse Resp BP Sys/Clemons Pulse Ox Last 24 Hr 97.1 F-98.3 F 39-75 13-33 104-151/55-86 88-100 Intake and Output 06/04/21 06/04/21 06/04/21 05:59 13:59 21:59 Intake Total 360 240 250 Output Total 400 Balance 360 -160 250 Intake & Output: Intake & Output 06/04/21 06/04/21 06/04/21 05:59 13:59 21:59 Intake Total 360 240 250 Output Total 400 Balance 360 -160 250 Intake: IV 250 Veklury 100 mg In Sodium 250 Chloride 0.9% 250 ml @ 500 mls/ hr IV Q24H [facility] Rx#:[id number] Oral 360 240 Output: Void Amount 400 Other: Meal snack Breakfast Percent of Meal Consumed 75% 50% # Bowel Movements 2 OBJ DATA Labs CBC & Chem 7: 06/04/21 05:25 06/04/21 05:27 Labs: Abnormal Lab Results 06/04/21 06/04/21 06/04/21 05:27 05:27 05:25 RDW 15.1 H Neut % (Auto) Lymph % (Auto) Lymph # (Auto) 1.00 L Anion Gap Glucose 128 H Magnesium GGT 38 H AST Lactate Dehydrogenase 321 H C-Reactive Protein 3.90 H Triglycerides 06/03/21 06/03/21 06/03/21 05:19 05:19 05:19 RDW 15.1 H Neut % (Auto) Lymph % (Auto) Lymph # (Auto) 0.84 L Anion Gap 18.0 H Glucose 112 H Magnesium 2.6 H GGT 40 H AST Lactate Dehydrogenase 380 H C-Reactive Protein 7.80 H Triglycerides 06/02/21 06/02/21 06/02/21 17:12 12:55 12:55 RDW 15.1 H Neut % (Auto) 82.3 H Lymph % (Auto) 11.9 L Lymph # (Auto) 0.88 L Anion Gap Glucose 116 H Magnesium GGT 43 H AST 34 H Lactate Dehydrogenase 413 H C-Reactive Protein 5.20 H Triglycerides 185 H 06/02/21 12:55 RDW Neut % (Auto) Lymph % (Auto) Lymph # (Auto) Anion Gap Glucose 118 H Magnesium GGT AST 33 H Lactate Dehydrogenase C-Reactive Protein Triglycerides Meds: Medications Acetaminophen (Acetaminophen 325 Mg Tablet) 650 mg PO Q6HP PRN; Protocol PRN Reason: Per Pain Protocol/Fever > 101 Albuterol Sulfate (Albuterol Sulfate 200 Puff Inhaler) 2 puff INH Q2HP PRN PRN Reason: Shortness Of Breath Last Admin: 06/04/21 09:08 Dose: 2 puff Documented by: Dexamethasone (Dexamethasone 10 Mg/Ml Vial) 6 mg IV DAILY [facility] Stop: 06/12/21 08:59 Last Admin: 06/04/21 08:13 Dose: 6 mg Documented by: Diazepam (Diazepam 2 Mg Tablet) 2 mg PO TID PRN PRN Reason: Anxiety Last Admin: 06/04/21 08:39 Dose: 2 mg Documented by: Enoxaparin Sodium (Enoxaparin 40 Mg/0.4 Ml Syringe) 40 mg SQ BID [facility] Last Admin: 06/04/21 08:12 Dose: 40 mg Documented by: Guaifenesin (Guaifenesin 100 Mg/5 Ml Oral Olivia) 200 mg PO Q4HP PRN PRN Reason: Congestion Last Admin: 06/04/21 08:39 Dose: 200 mg Documented by: REMDESIVIR 100 mg/ Sodium (Chloride) 250 mls @ 500 mls/hr IV Q24H [facility] Stop: 06/06/21 14:29 Last Infusion: 06/04/21 14:52 Dose: Infused Documented by: Ondansetron HCl (Ondansetron 4 Mg/2 Ml Vial) 4 mg IV Q6HP PRN PRN Reason: Nausea And Vomiting Last Admin: 06/03/21 03:28 Dose: 4 mg Documented by: Oxycodone/Acetaminophen (Oxycodone/Apap 5/325mg Tablet) 1 tab PO Q4HP PRN; Protocol PRN Reason: Per Pain Protocol Senna (Sennosides 1 Tablet) 2 tab PO HS [facility] Last Admin: 06/03/21 21:30 Dose: Not Given Documented by: Sodium Chloride (0.9 % Sodium Chloride 10 Ml Syringe) 10 ml IV Q8 [facility] Last Admin: 06/04/21 14:06 Dose: 10 ml Documented by: A/P Narrative A/P Narrative: Assessment: 41 year old female with anxiety, prediabetes, obesity admitted for acute hypoxic respiratory failure secondary to severe COVID-19 pneumonia. #Acute hypoxic respiratory failure #Severe COVID-19 pneumonia #Anxiety #BMI 42 Plan -Dexamethasone IV and Remdesivir IV for severe COVID-19 pneumonia. -Oxygen supplementation as needed. -Albuterol inhaler prn. -Valium prn for axiety -Follow CRP and LDH. -Daily labs while in ICU. -Daily chest xray until more stable. -Encourage self proning. -Regular diet. -school bus monitor. -DVT ppx: Lovenox SQ BID -Code status: Police Cadet Spent With Patient Time: Total time spent is greater than 50% in coordination of care (as document ed) at patient's floor/unit and/or counseling patient: QUALITY VTE Deep Vein Thrombosis/Pulmonary Embolism Present on Admission: No
[2021-06-04] MEDS: SENNOSIDES 1 TABLET PO SCH (20:56)
[2021-06-05] MEDS: 0.9 % SODIUM CHLORIDE 10 ML SYRINGE IV SCH ×4 (05:54→21:03)
[2021-06-05 06:55] LABS: Basophils # (Auto) 0.02 K/mcL (0.00-0.30); Basophils % (Auto) 0.3 % (0.0-2.0); Eosinophils % (Auto) 1.5 % (0.0-7.0); Hematocrit 36.5 % (34.1-44.9); Hemoglobin 11.8 g/dL (11.2-15.7); Lymphocytes # (Auto) 1.35 K/mcL (1.50-4.80); Lymphocytes % (Auto) 20.3 % (15.5-49.0); Mean Cell Volume 84.5 fL (80.0-100.0); Mean Corpuscular HGB Conc 32.3 g/dL (31.0-36.0); Mean Platelet Volume 9.8 fL (7.4-10.4); Monocytes # (Auto) 0.55 K/mcL (0.10-0.90); Monocytes % (Auto) 8.3 % (1.0-12.0); Neutrophils % (Auto) 69.6 % (38.0-78.0); Platelet Count 309 K/mcL (140-440); RBC 4.32 M/mcL (3.59-5.38); Red Cell Distribution Width 14.9 % (11.5-14.5); WBC 6.7 K/mcL (4.5-11.0)
[2021-06-05 07:37] LABS: ALT/SGPT 22 U/L (<40); AST/SGOT 19 U/L (<32); Albumin 3.1 gm/dL (3.2-5.2); Alkaline Phosphatase 74 U/L (39-117); Bilirubin,Direct < 0.2 mg/dL (0-0.3); Bilirubin,Total 0.3 mg/dL (0.1-1.0); Blood Urea Nitrogen 14 mg/dL (6-20); Calcium 8.8 mg/dL (8.6-10.4); Carbon Dioxide 24 mmol/L (22-30); Chloride 104 mmol/L (96-108); Globulin 3.1 gm/dL (2.2-3.7); Glomerular Filtration Rate 108; Glucose 95 mg/dL (70-105); Lactate Dehydrogenase 264 U/L (135-225); Phosphorous 5.2 mg/dL (2.5-4.5); Triglycerides 107 mg/dL (<150); Uric Acid 6.1 mg/dL (2.5-8.0)
--- NOTE | 2021-06-05 08:49 | XRay Report ---
HISTORY: Follow-up Covid Pneumonia FINDINGS: Severe alveolar infiltrates are again seen throughout both lungs. These have remained stable since 06/04/21. A band of discoid atelectasis is seen adjacent to the left heart border which has become more prominent. There is no pneumothorax or pleural effusion. The heart size is normal. IMPRESSION: Stable severe pneumonia throughout both lungs Interpreted and Authenticated by: Omer Al 06/05/21
[2021-06-05] MEDS: DEXAMETHASONE 10 MG/ML VIAL IV SCH (09:05)
[2021-06-05] MEDS: DIAZEPAM 2 MG TABLET PO PRN ×2 (09:06→21:03)
[2021-06-05] MEDS: ENOXAPARIN 40 MG/0.4 ML SYRINGE SQ SCH ×2 (09:06→21:02)
--- NOTE | 2021-06-05 11:32 | Internal Med Progress Note ---
SUBJECTIVE Subjective Patient information: Note initiated : 06/05/21 at 11:30 am Service Date, if different from initiated Date: [] Patient: Bernadette Brooks 41 y/o F admitted on 06/02/21 for Shortness of breath. Chief Complaint: [] Interval history: Ms. Jassi Resendez is a 41 year old female with a history of anxiety, prediabetes, obesity-BMI 42 who presented to the [facility] for hypoxia that began about three days ago. Her was diagnosed with COVID-19 and was is recovering at home however apparently required oxygen during part of his recovery. The patient says that she began to feel ill about 10 days ago and began to use her husbands oxygen 3 days ago when she saw she was hypoxic on a home pulse oximeter. The patient was started on Prednisone 60 mg daily by her primary care provider but continued to get more short of breath. She also has a nonproductive cough and pleuritic chest pain. In the ED the patient required wolfgang al canula oxygen 5 L/min, her respiratory rate 20-30. CBC was fairly unremarkable, mildly increased neutrophils and lymphopenia but WBC count was normal. Chemistry panel only showed mild hyperglycemia and mildly elevated AST. Chest xray showed severe diffuse ground glass alveolar infiltrates bilaterally, left>right. CEPHEID PCR was positive for SARS-CoV-2. Hospital medicine was consulted for admission. 06/03: On HHFNC w/ FiO2 of 75, does not appear to be in respiratory distress, respiratory rate mid to low 20s, CRP increased 5.2 to 7.8, LDH trended down. Continue monitoring in the ICU. 06/04: Modestly improved oxygen requirement today, continues on HHFNC. CRP decreased 7.8 to 3.9 and LDH also trending down. The patient says she feels better. Chest xray looks worse but the patient seems to be doing better today overall. Procalcitonin was .05. 06/05: Clinically improved, weaned 9L/min, will keep in PCU status for now. Review of systems: improved dyspnea Physical exam Head: Atraumatic, normal inspection. Eyes: normal appearance, no scleral icterus. Neck: full ROM Respiratory: nasal canula, does not appear to be in respiratory distress Cardiovascular: bradycardia, S1, S2. GI/Abdominal: soft, nontender, no guarding. Extremities: full range of motion, nontender. Neurological: CN II-XII intact, intact motor, intact sensation. Psychiatric: normal mood. Skin: warm, normal color Constitutional Vitals: Vital Signs Temp Pulse Resp BP Pulse Ox 98.2 F 45 L 19 113/56 95 06/05/21 02:01 06/05/21 06:41 06/05/21 06:41 06/05/21 04:01 06/05/21 09:35 Period Temp Pulse Resp BP Sys/Clemons Pulse Ox Last 24 Hr 97.1 F-98.2 F 37-74 16-25 113-146/53-81 92-100 Intake and Output 06/04/21 06/05/21 06/05/21 21:59 05:59 13:59 Intake Total 650 240 Output Total 300 Balance 350 240 Weight 125.872 kg Intake & Output: Intake & Output 06/04/21 06/05/21 06/05/21 21:59 05:59 13:59 Intake Total 650 240 Output Total 300 Balance 350 240 Weight 125.872 kg Intake: IV 250 Veklury 100 mg In Sodium 250 Chloride 0.9% 250 ml @ 500 mls/ hr IV Q24H [facility] Rx#:[id number] Oral 400 240 Output: Void Amount 300 Other: Meal Nourishment/Supplement Percent of Meal Consumed 50% Urine Appearance Clear Urine Color Pale OBJ DATA Labs CBC & Chem 7: 06/05/21 05:21 06/05/21 05:21 Labs: Abnormal Lab Results 06/05/21 06/05/21 06/05/21 05:22 05:21 05:21 RDW 14.9 H Neut % (Auto) Lymph % (Auto) Lymph # (Auto) 1.35 L Anion Gap Glucose Phosphorus 5.2 H Magnesium GGT AST Lactate Dehydrogenase 264 H C-Reactive Protein 2.10 H Albumin 3.1 L Triglycerides 06/04/21 06/04/21 06/04/21 05:27 05:27 05:25 RDW 15.1 H Neut % (Auto) Lymph % (Auto) Lymph # (Auto) 1.00 L Anion Gap Glucose 128 H Phosphorus Magnesium GGT 38 H AST Lactate Dehydrogenase 321 H C-Reactive Protein 3.90 H Albumin Triglycerides 06/03/21 06/03/21 06/03/21 05:19 05:19 05:19 RDW 15.1 H Neut % (Auto) Lymph % (Auto) Lymph # (Auto) 0.84 L Anion Gap 18.0 H Glucose 112 H Phosphorus Magnesium 2.6 H GGT 40 H AST Lactate Dehydrogenase 380 H C-Reactive Protein 7.80 H Albumin Triglycerides 06/02/21 06/02/21 06/02/21 17:12 12:55 12:55 RDW 15.1 H Neut % (Auto) 82.3 H Lymph % (Auto) 11.9 L Lymph # (Auto) 0.88 L Anion Gap Glucose 116 H Phosphorus Magnesium GGT 43 H AST 34 H Lactate Dehydrogenase 413 H C-Reactive Protein 5.20 H Albumin Triglycerides 185 H 06/02/21 12:55 RDW Neut % (Auto) Lymph % (Auto) Lymph # (Auto) Anion Gap Glucose 118 H Phosphorus Magnesium GGT AST 33 H Lactate Dehydrogenase C-Reactive Protein Albumin Triglycerides Meds: Medications Acetaminophen (Acetaminophen 325 Mg Tablet) 650 mg PO Q6HP PRN; Protocol PRN Reason: Per Pain Protocol/Fever > 101 Albuterol Sulfate (Albuterol Sulfate 200 Puff Inhaler) 2 puff INH Q2HP PRN PRN Reason: Shortness Of Breath Last Admin: 06/04/21 09:08 Dose: 2 puff Documented by: Dexamethasone (Dexamethasone 10 Mg/Ml Vial) 6 mg IV DAILY [facility] Stop: 06/12/21 08:59 Last Admin: 06/05/21 09:05 Dose: 6 mg Documented by: Diazepam (Diazepam 2 Mg Tablet) 2 mg PO TID PRN PRN Reason: Anxiety Last Admin: 06/05/21 09:06 Dose: 2 mg Documented by: Enoxaparin Sodium (Enoxaparin 40 Mg/0.4 Ml Syringe) 40 mg SQ BID [facility] Last Admin: 06/05/21 09:06 Dose: 40 mg Documented by: Guaifenesin (Guaifenesin 100 Mg/5 Ml Oral Olivia) 200 mg PO Q4HP PRN PRN Reason: Congestion Last Admin: 06/05/21 09:06 Dose: 200 mg Documented by: REMDESIVIR 100 mg/ Sodium (Chloride) 250 mls @ 500 mls/hr IV Q24H [facility] Stop: 06/06/21 14:29 Last Infusion: 06/04/21 14:52 Dose: Infused Documented by: Ondansetron HCl (Ondansetron 4 Mg/2 Ml Vial) 4 mg IV Q6HP PRN PRN Reason: Nausea And Vomiting Last Admin: 06/03/21 03:28 Dose: 4 mg Documented by: Oxycodone/Acetaminophen (Oxycodone/Apap 5/325mg Tablet) 1 tab PO Q4HP PRN; Protocol PRN Reason: Per Pain Protocol Senna (Sennosides 1 Tablet) 2 tab PO HS [facility] Last Admin: 06/04/21 20:56 Dose: Not Given Documented by: Sodium Chloride (0.9 % Sodium Chloride 10 Ml Syringe) 10 ml IV Q8 [facility] Last Admin: 06/05/21 09:06 Dose: 10 ml Documented by: A/P Narrative A/P Narrative: Assessment: 41 year old female with anxiety, prediabetes, obesity admitted for acute hypoxic respiratory failure secondary to severe COVID-19 pneumonia. #Acute hypoxic respiratory failure #Severe COVID-19 pneumonia #Anxiety #BMI 42 Plan -Dexamethasone IV and Remdesivir IV for severe COVID-19 pneumonia. -Oxygen supplementation as needed. -Albuterol inhaler prn. -Valium prn for axiety -Daily labs while in ICU. -Daily chest xray tomorrow. -Encourage self proning. -Regular diet. -gambling monitor. -DVT ppx: Lovenox SQ BID -Code status: Wrister Spent With Patient Time: Total time spent is greater than 50% in coordination of care (as document ed) at patient's floor/unit and/or counseling patient: QUALITY VTE Deep Vein Thrombosis/Pulmonary Embolism Present on Admission: No
[2021-06-05] MEDS: REMDESIVIR 100 MG in 0.9 % SODIUM CHLORIDE 250 ML IV SCH (13:40)
--- NOTE | 2021-06-05 13:56 | Internal Med Progress Note ---
SUBJECTIVE Subjective Patient information: Note initiated : 06/05/21 at 1:50 pm Service Date, if different from initiated Date: [] Patient: Bernadette Brooks 41 y/o F admitted on 06/02/21 for Shortness of breath. Chief Complaint: [] Interval history: Ms. Jassi Resendez is a 41 year old female with a history of anxiety, prediabetes, obesity-BMI 42 who presented to the [facility] for hypoxia that began about three days ago. Her was diagnosed with COVID-19 and was is recovering at home however apparently required oxygen during part of his recovery. The patient says that she began to feel ill about 10 days ago and began to use her husbands oxygen 3 days ago when she saw she was hypoxic on a home pulse oximeter. The patient was started on Prednisone 60 mg daily by her primary care provider but continued to get more short of breath. She also has a nonproductive cough and pleuritic chest pain. In the ED the patient required nasal canula oxygen 5 L/min, her respiratory rate 20-30. CBC was fairly unremarkable, mildly increased neutrophils and lymphopenia but WBC count was normal. Chemistry panel only showed mild hyperglycemia and mildly elevated AST. Chest xray showed severe diffuse ground glass alveolar infiltrates bilaterally, left>right. CEPHEID PCR was positive for SARS-CoV-2. Hospital medicine was consulted for admission. 06/03: On HHFNC w/ FiO2 of 75, does not appear to be in respiratory distress, respiratory rate mid to low 20s, CRP increased 5.2 to 7.8, LDH trended down. Continue monitoring in the ICU. 06/04: Modestly improved oxygen requirement today, continues on HHFNC. CRP decreased 7.8 to 3.9 and LDH also trending down. The patient says she feels better. Chest xray looks worse but the patient seems to be doing better today overall. Procalcitonin was .05. 06/05: Clinically improved, weaned 9L/min, will keep in PCU status for now. 06/06 Constitutional Vitals: Vital Signs Temp Pulse Resp BP Pulse Ox 97.4 F 56 L 27 H 132/80 98 06/05/21 12:00 06/05/21 12:00 06/05/21 12:00 06/05/21 12:00 06/05/21 12:00 Period Temp Pulse Resp BP Sys/Clemons Pulse Ox Last 24 Hr 97.0 F-98.2 F 37-74 17-27 108-146/53-82 92-99 Intake and Output 06/04/21 06/05/21 06/05/21 21:59 05:59 13:59 Intake Total 650 240 Output Total 300 Balance 350 240 Weight 125.872 kg Intake & Output: Intake & Output 06/04/21 06/05/21 06/05/21 21:59 05:59 13:59 Intake Total 650 240 Output Total 300 Balance 350 240 Weight 125.872 kg Intake: IV 250 Veklury 100 mg In Sodium 250 Chloride 0.9% 250 ml @ 500 mls/ hr IV Q24H [facility] Rx#:[id number] Oral 400 240 Output: Void Amount 300 Other: Meal Nourishment/Supplement Percent of Meal Consumed 50% Urine Appearance Clear Urine Color Pale Exam: General: Alert, Awake, No acute Distress Eyes/N/T: EOMI, Head/Neck: neck supple, CV: bradycardia but regular, No murmurs, Pulm: b/l, no wheezing/rhonchi/rales Abd: soft, nontender, +BS x4 Ext: no clubbing/cyanosis/edema Neuro: Alert, no focal deficits, moves all extremities, Skin: warm/dry OBJ DATA Labs CBC & Chem 7: 06/05/21 05:21 06/05/21 05:21 Labs: Abnormal Lab Results 06/05/21 06/05/21 06/05/21 05:22 05:21 05:21 RDW 14.9 H Lymph # (Auto) 1.35 L Anion Gap Glucose Phosphorus 5.2 H Magnesium GGT AST Lactate Dehydrogenase 264 H C-Reactive Protein 2.10 H Albumin 3.1 L Triglycerides 06/04/21 06/04/21 06/04/21 05:27 05:27 05:25 RDW 15.1 H Lymph # (Auto) 1.00 L Anion Gap Glucose 128 H Phosphorus Magnesium GGT 38 H AST Lactate Dehydrogenase 321 H C-Reactive Protein 3.90 H Albumin Triglycerides 06/03/21 06/03/21 06/03/21 05:19 05:19 05:19 RDW 15.1 H Lymph # (Auto) 0.84 L Anion Gap 18.0 H Glucose 112 H Phosphorus Magnesium 2.6 H GGT 40 H AST Lactate Dehydrogenase 380 H C-Reactive Protein 7.80 H Albumin Triglycerides 06/02/21 06/02/21 17:12 12:55 RDW Lymph # (Auto) Anion Gap Glucose 116 H Phosphorus Magnesium GGT 43 H AST 34 H Lactate Dehydrogenase 413 H C-Reactive Protein 5.20 H Albumin Triglycerides 185 H Meds: Medications Acetaminophen (Acetaminophen 325 Mg Tablet) 650 mg PO Q6HP PRN; Protocol PRN Reason: Per Pain Protocol/Fever > 101 Albuterol Sulfate (Albuterol Sulfate 200 Puff Inhaler) 2 puff INH Q2HP PRN PRN Reason: Shortness Of Breath Last Admin: 06/04/21 09:08 Dose: 2 puff Documented by: Dexamethasone (Dexamethasone 10 Mg/Ml Vial) 6 mg IV DAILY [facility] Stop: 06/12/21 08:59 Last Admin: 06/05/21 09:05 Dose: 6 mg Documented by: Diazepam (Diazepam 2 Mg Tablet) 2 mg PO TID PRN PRN Reason: Anxiety Last Admin: 06/05/21 09:06 Dose: 2 mg Documented by: Enoxaparin Sodium (Enoxaparin 40 Mg/0.4 Ml Syringe) 40 mg SQ BID [facility] Last Admin: 06/05/21 09:06 Dose: 40 mg Documented by: Guaifenesin (Guaifenesin 100 Mg/5 Ml Oral Olivia) 200 mg PO Q4HP PRN PRN Reason: Congestion Last Admin: 06/05/21 09:06 Dose: 200 mg Documented by: REMDESIVIR 100 mg/ Sodium (Chloride) 250 mls @ 500 mls/hr IV Q24H [facility] Stop: 06/06/21 14:29 Last Admin: 06/05/21 13:40 Dose: 500 mls/hr Documented by: Ondansetron HCl (Ondansetron 4 Mg/2 Ml Vial) 4 mg IV Q6HP PRN PRN Reason: Nausea And Vomiting Last Admin: 06/03/21 03:28 Dose: 4 mg Documented by: Oxycodone/Acetaminophen (Oxycodone/Apap 5/325mg Tablet) 1 tab PO Q4HP PRN; Protocol PRN Reason: Per Pain Protocol Senna (Sennosides 1 Tablet) 2 tab PO [facility] Last Admin: 06/04/21 20:56 Dose: Not Given Documented by: Sodium Chloride (0.9 % Sodium Chloride 10 Ml Syringe) 10 ml IV Q8 [facility] Last Admin: 06/05/21 13:39 Dose: 10 ml Documented by: A/P Narrative A/P Narrative: A: #Acute hypoxic respiratory failure with ARDS: -down to 9L NC #Severe COVID-19 pneumonia: #Anxiety: #GERD: #Obesity: BMI 42 Plan -Dexamethasone IV and Remdesivir IV for severe COVID-19 pneumonia -Oxygen supplementation as needed, wean as able -Albuterol inhaler prn -Valium prn for axiety -daily proning -?home plavix/prednisone - clarify -DVT ppx: Lovenox SQ BID / home H2 Code status: Right Of Way Clearer Spent With Patient Time: Total time spent is greater than 50% in coordination of care (as documented) at patient's floor/unit and/or counseling patient: QUALITY VTE Deep Vein Thrombosis/Pulmonary Embolism Present on Admission: No
[2021-06-05] MEDS: SENNOSIDES 1 TABLET PO SCH (20:46)
[2021-06-05] MEDS ORDERED: FAMOTIDINE 20 MG TABLET PO SCH (21:00)
[2021-06-06] MEDS: 0.9 % SODIUM CHLORIDE 10 ML SYRINGE IV SCH ×3 (05:24→21:19)
[2021-06-06 07:46] LABS: POC Blood Urea Nitrogen 14 mg/dL (6-20); POC CO2 27 mmol/L (22-30); POC Calcium, Ionized 1.12 mmEq/L (1.16-1.32); POC Chloride 104 mEq/L (96-108); POC Creatinine 0.7 mg/dL (0.6-1.2); POC Glucose, Random 97 mg/dL (70-105); POC Hematocrit 37 % (36-48); POC Potassium 3.8 mEql/L (3.3-5.1); POC Sodium 142 mEq/L (133-145)
--- NOTE | 2021-06-06 08:26 | Internal Med Progress Note ---
SUBJECTIVE Subjective Patient information: Note initiated : 06/06/21 at 8:24 am Service Date, if different from initiated Date: [] Patient: Bernadette Brooks 41 y/o F admitted on 06/02/21 for Shortness of breath. Chief Complaint: [] Interval history: Ms. Jassi Resendez is a 41 year old female with a history of anxiety, prediabetes, obesity-BMI 42 who presented to the [facility] for hypoxia that began about three days ago. Her was diagnosed with COVID-19 and was is recovering at home however apparently required oxygen during part of his recovery. The patient says that she began to feel ill about 10 days ago and began to use her husbands oxygen 3 days ago when she saw she was hypoxic on a home pulse oximeter. The patient was started on Prednisone 60 mg daily by her primary care provider but continued to get more short of breath. She also has a nonproductive cough and pleuritic chest pain. In the ED the patient required nasal canula oxygen 5 L/min, her respiratory rate 20-30. CBC was fairly unremarkable, mildly increased neutrophils and lymphopenia but WBC count was normal. Chemistry panel only showed mild hyperglycemia and mildly elevated AST. Chest xray showed severe diffuse ground glass alveolar infiltrates bilaterally, left>right. CEPHEID PCR was positive for SARS-CoV-2. Hospital medicine was consulted for admission. 06/03: On HHFNC w/ FiO2 of 75, does not appear to be in respiratory distress, respiratory rate mid to low 20s, CRP increased 5.2 to 7.8, LDH trended down. Continue monitoring in the ICU. 06/04: Modestly improved oxygen requirement today, continues on HHFNC. CRP decreased 7.8 to 3.9 and LDH also trending down. The patient says she feels better. Chest xray looks worse but the patient seems to be doing better today overall. Procalcitonin was .05. 06/05: Clinically improved, weaned 9L/min, will keep in PCU status for now. 06/06 patient feeling better. Oxygen down 2 L. Shortness of breath much improved. Mild coughing. Occasional headache. Review of Systems: denies headache/fever/chills/nausea/vomiting/chest or abdominal pain/diarrhea. Otherwise see above. Constitutional Vitals: Vital Signs Temp Pulse Resp BP Pulse Ox 96.8 F L 41 L 20 141/72 92 06/06/21 08:01 06/06/21 08:01 06/06/21 08:01 06/06/21 08:01 06/06/21 08:01 Period Temp Pulse Resp BP Sys/Clemons Pulse Ox Last 24 Hr 96.2 F-97.4 F 35-67 13-29 117-149/60-109 92-98 Intake and Output 06/05/21 06/06/21 06/06/21 21:59 05:59 13:59 Intake Total 1330 400 Output Total 900 350 Balance 430 50 Weight 127.601 kg Intake & Output: Intake & Output 06/05/21 06/06/21 06/06/21 21:59 05:59 13:59 Intake Total 1330 400 Output Total 900 350 Balance 430 50 Weight 127.601 kg Intake: Nourishment/Supplement quantity 240 (ml) IV 250 Veklury 100 mg In Sodium 250 Chloride 0.9% 250 ml @ 500 mls/ hr IV Q24H [facility] Rx#:[id number] Oral 840 400 Output: Void Amount 900 350 Other: Meal Nourishment/Supplement Percent of Meal Consumed 100% Feeding Ability Independent Nourishment/Supplement name ensure Urine Appearance Clear Clear Urine Color Bright Yellow Bright Yellow Urine Odor Normal Stool Size Small Stool Color Brown Stool Consistency Soft Loose # Bowel Movements 1 Exam: General: Alert, Awake, No acute Distress, obese Eyes/N/T: EOMI, Head/Neck: neck supple, CV: bradycardia but regular, No murmurs, Pulm: Fine rales b/l, no wheezing/ Abd: soft, nontender, +BS x4 Ext: no clubbing/cyanosis/edema Neuro: Alert, no focal deficits, moves all extremities, Skin: warm/dry OBJ DATA Labs CBC & Chem 7: 06/05/21 05:21 06/05/21 05:21 Labs: Abnormal Lab Results 06/06/21 06/05/21 06/05/21 07:36 05:22 05:21 RDW Lymph # (Auto) Glucose POC WB Ioniz Calcium 1.12 L Phosphorus 5.2 H GGT Lactate Dehydrogenase 264 H C-Reactive Protein 2.10 H Albumin 3.1 L 06/05/21 06/04/21 06/04/21 05:21 05:27 05:27 RDW 14.9 H Lymph # (Auto) 1.35 L Glucose 128 H POC WB Ioniz Calcium Phosphorus GGT 38 H Lactate Dehydrogenase 321 H C-Reactive Protein 3.90 H Albumin 06/04/21 05:25 RDW 15.1 H Lymph # (Auto) 1.00 L Glucose POC WB Ioniz Calcium Phosphorus GGT Lactate Dehydrogenase C-Reactive Protein Albumin Meds: Medications Acetaminophen (Acetaminophen 325 Mg Tablet) 650 mg PO Q6HP PRN; Protocol PRN Reason: Per Pain Protocol/Fever > 101 Albuterol Sulfate (Albuterol Sulfate 200 Puff Inhaler) 2 puff INH Q2HP PRN PRN Reason: Shortness Of Breath Last Admin: 06/04/21 09:08 Dose: 2 puff Documented by: Dexamethasone (Dexamethasone 10 Mg/Ml Vial) 6 mg IV DAILY [facility] Stop: 06/12/21 08:59 Last Admin: 06/05/21 09:05 Dose: 6 mg Documented by: Diazepam (Diazepam 2 Mg Tablet) 2 mg PO TID PRN PRN Reason: Anxiety Last Admin: 06/05/21 21:03 Dose: 2 mg Documented by: Enoxaparin Sodium (Enoxaparin 40 Mg/0.4 Ml Syringe) 40 mg SQ BID [facility] Last Admin: 06/05/21 21:02 Dose: 40 mg Documented by: Famotidine (Famotidine 20 Mg Tablet) 20 mg PO HS [facility] Last Admin: 06/05/21 21:03 Dose: 20 mg Documented by: Guaifenesin (Guaifenesin 100 Mg/5 Ml Oral Olivia) 200 mg PO Q4HP PRN PRN Reason: Congestion Last Admin: 06/06/21 04:54 Dose: 200 mg Documented by: REMDESIVIR 100 mg/ Sodium (Chloride) 250 mls @ 500 mls/hr IV Q24H [facility] Stop: 06/06/21 14:29 Last Infusion: 06/05/21 14:15 Dose: Infused Documented by: Ondansetron HCl (Ondansetron 4 Mg/2 Ml Vial) 4 mg IV Q6HP PRN PRN Reason: Nausea And Vomiting Last Admin: 06/03/21 03:28 Dose: 4 mg Documented by: Oxycodone/Acetaminophen (Oxycodone/Apap 5/325mg Tablet) 1 tab PO Q4HP PRN; Protocol PRN Reason: Per Pain Protocol Jose Carlosna (Sennosides 1 Tablet) 2 tab PO HS [facility] Last Admin: 06/05/21 20:46 Dose: Not Given Documented by: Sodium Chloride (0.9 % Sodium Chloride 10 Ml Syringe) 10 ml IV Q8 [facility] Last Admin: 06/06/21 05:24 Dose: 10 ml Documented by: A/P Narrative A/P Narrative: A: #Acute hypoxic respiratory failure with ARDS: -down to 2L NC #Severe COVID-19 pneumonia: #Anxiety: #GERD: #Obesity: BMI 42 Plan -Dexamethasone IV and Remdesivir IV for severe COVID-19 pneumonia -Oxygen supplementation as needed, wean as able -Albuterol inhaler prn -Valium prn for axiety -daily proning -DVT ppx: Lovenox SQ BID / home H2 Code status: [employer] Person Spent With Patient Time: Total time spent is greater than 50% in coordination of care (as documented) at patient's floor/unit and/or counseling patient: QUALITY VTE Deep Vein Thrombosis/Pulmonary Embolism Present on Admission: No
[2021-06-06 09:03] LABS: ALT/SGPT 29 U/L (<40); AST/SGOT 24 U/L (<32); Alkaline Phosphatase 73 U/L (39-117)
[2021-06-06] MEDS: ENOXAPARIN 40 MG/0.4 ML SYRINGE SQ SCH ×2 (10:14→21:18)
[2021-06-06] MEDS: DEXAMETHASONE 10 MG/ML VIAL IV SCH (10:14)
--- NOTE | 2021-06-06 11:05 | Discharge Summary ---
Discharge Provider Provider Patient information: Note initiated : 06/06/21 at 11:04 am Service Date, if different from initiated Date: [] Patient: Bernadette Brooks 41 y/o F admitted on 06/02/21 for Shortness of breath. Chief Complaint: [] Date of admission: 06/02/21 17:03 Discharge date: 06/07/21 Primary care physician: LOU Peters Consults: 06/02/21 Consult to Physician [CONS] Stat Comment: Consulting Provider: Leonard Camejo Reason For Exam: Physician to Consult Discharge Meds Discharge Medications Home Medications lorazepam 1 mg tablet 1 mg PO BID PRN #60 tab 05/09/21 [Rx Confirmed 06/02/21 Last Taken 06/01/21 21:00] famotidine 20 mg PO DAILY 06/02/21 [History Confirmed 06/02/21 Last Taken 06/01/21 08:00] fluticasone propionate 2 spray INTRANASAL DAILY 06/02/21 [History Confirmed 06/02/21 Last Taken 06/01/21 08:00] COURSE Hospital Course Hospital course: Interval history: Ms. Jassi Resendez is a 41 year old female with a history of anxiety, prediabetes, obesity-BMI 42 who presented to the [facility] for hypoxia that began about three days ago. Her was diagnosed with COVID-19 and was is recovering at home however apparently required oxygen during part of his recovery. The patient says that she began to feel ill about 10 days ago and began to use her husbands oxygen 3 days ago when she saw she was hypoxic on a home pulse oximeter. The patient was started on Prednisone 60 mg daily by her primary care provider but continued to get more short of breath. She also has a nonproductive cough and pleuritic chest pain. In the ED the patient required nasal canula oxygen 5 L/min, her respiratory rate 20-30. CBC was fairly unremarkable, mildly increased neutrophils and lymphopenia but WBC count was normal. Chemistry panel only showed mild hyperglycemia and mildly elevated AST. Chest xray showed severe diffuse ground glass alveolar infiltrates bilaterally, left>right. CEPHEID PCR was positive for SARS-CoV-2. Hospital medicine was consulted for admission. 06/03: On HHFNC w/ FiO2 of 75, does not appear to be in respiratory distress, respiratory rate mid to low 20s, CRP increased 5.2 to 7.8, LDH trended down. Continue monitoring in the ICU. 06/04: Modestly improved oxygen requirement today, continues on HHFNC. CRP decreased 7.8 to 3.9 and LDH also trending down. The patient says she feels better. Chest xray looks worse but the patient seems to be doing better today overall. Procalcitonin was .05. 06/05: Clinically improved, weaned 9L/min, will keep in PCU status for now. 06/06 patient feeling better. Oxygen down 2 L. Shortness of breath much improved. Mild coughing. Occasional headache. 06/07 No overnight event or new complaints. Patient doing well on room air but does have mild desaturation with activity, will have RT assess her and may send home with oxygen. A/P Narrative: A: #Acute hypoxic respiratory failure with ARDS: #Severe COVID-19 pneumonia: #Anxiety: #GERD: #Obesity: BMI 42 Discharge diagnosis: Covid pneumonia acute hypoxic respiratory failure anxiety Secondary discharge diagnosis: Anxiety GERD obesity Time Spent with Patient Time attestation: Total time spent providing and/or coordinating discharge se rvices: Time spent: Greater than 30 minutes EXAM Constitutional Vitals: Temp Pulse Resp BP Pulse Ox 96.8 F L 41 L 20 141/72 92 06/06/21 08:01 06/06/21 08:01 06/06/21 08:01 06/06/21 08:01 06/06/21 08:01 Discharge Data Data Completed and Pending Labs on day of discharge: Labs from last 24 hours 06/06/21 07:36 POC Hct 37 POC Sodium 142 POC Potassium 3.8 POC Chloride 104 POC Total CO2 27 POC BUN 14 POC Creatinine 0.7 POC Glucose 97 POC WB Ioniz Calcium 1.12 L AST 24 ALT 29 Alkaline Phosphatase 73 Discharge Plan Patient/Caregiver Discharge Instructions Activity: increase activity as tolerated Diet: Regular Diet Instructions: - Prescriptions: Continued lorazepam 1 mg tablet 1 mg PO BID PRN (Reason: anxiety) Qty: 60 RF: 0 famotidine 20 mg tablet 20 mg PO DAILY RF: 0 fluticasone propionate 50 mcg/actuation spray,suspension 2 spray INTRANASAL DAILY RF: 0 Follow Up Plan Follow up with: Delia Salcedo ARNP [Primary Care Provider] - Patient Disposition: Home, Self-Care Prognosis: Fair Overall status at discharge: patient is progressing back to baseline Discharge Orders: Discharge Order (Routine); Ordered 06/07/21 Ordered By: Yung GOODRICH VTE Deep Vein Thrombosis/Pulmonary Embolism Present on Admission: No
[2021-06-06] MEDS ORDERED: oxyCODONE/APAP 5/325MG TABLET PO PRN (12:49)
[2021-06-06] MEDS ORDERED: ACETAMINOPHEN 325 MG TABLET PO PRN (12:49)
[2021-06-06] MEDS ORDERED: ONDANSETRON 4 MG/2 ML VIAL IV PRN (12:49)
[2021-06-06] MEDS ORDERED: ALBUTEROL SULFATE 200 PUFF INHALER INH PRN (12:49)
[2021-06-06] MEDS ORDERED: DIAZEPAM 2 MG TABLET PO PRN (12:49)
[2021-06-06] MEDS ORDERED: REMDESIVIR 100 MG in 0.9 % SODIUM CHLORIDE 250 ML IV SCH (14:00)
--- NOTE | 2021-06-06 14:57 | XRay Report ---
HISTORY: Follow-up COVID pneumonia FINDINGS: There is a mosaic distribution of groundglass alveolar infiltrates throughout both lungs. There is increased consolidation above the left hilum compared with the prior exams. There has been no significant change in the right lung. There is no pneumothorax or pleural effusion. Heart is borderline enlarged but magnified by portable technique and suboptimal inspiration. IMPRESSION: Severe bilateral pneumonia, becoming worse above the left upper hilum Interpreted and Authenticated by: Omer Al 06/06/21
[2021-06-06] MEDS ORDERED: FUROSEMIDE 20 MG/2 ML VIAL IV ONE (15:22)
[2021-06-06] MEDS ORDERED: FAMOTIDINE 20 MG TABLET PO SCH (21:00)
[2021-06-06] MEDS ORDERED: SENNOSIDES 1 TABLET PO SCH (21:00)
[2021-06-07] MEDS: 0.9 % SODIUM CHLORIDE 10 ML SYRINGE IV SCH (04:36)
[2021-06-07] MEDS ORDERED: DEXAMETHASONE 10 MG/ML VIAL IV SCH (09:00)
[2021-06-07] MEDS: ENOXAPARIN 40 MG/0.4 ML SYRINGE SQ SCH (10:17)
== END 2021-06-07 11:30 | disposition home or self-care (01) | DRG 177 ==
LOC: ED 10:57 → ICU 17:03
PROVIDERS: ADMIT Internal Medicine; ATTEND Internal Medicine